=== PATIENT | female | born 1940 | race Caucasian/White ===

== ENCOUNTER 2019-05-03 12:22 | Inpatient (IN) | payer MEDICARE, OTHER ==
[~2019-05-03] VITALS: Ht 152.4 cm; Wt 66.9 kg
[~2019-05-03 12:22] MED LIST: FOLIC ACID 1 MG1 MG PO; HYDROCODONE-AP1 EAC6 PO; LEVOTHYROXINE 0.1 MG PO; MAXZIDE-25 MG1 EACH PO; SIMVASTATIN20 MG PO; TENORMIN50 MG PO; VITAMIN B-12500 MCG PO
[2019-05-03 12:25] VITALS: BP 129/56
[2019-05-03 13:34] LABS: NUCLEATED RBCS 0 /100WBC; WBC 4.1 thou/uL (4.0-11.0)
[2019-05-03 13:41] LABS: HEMATOCRIT 22.8 % (37.0-47.0); HEMOGLOBIN 7.9 gm/dL (12.0-15.0); MCH 35.8 pg (26.0-34.0); MCHC 34.7 g/dL (28.0-37.0); MCV 103.1 fL (80.0-100.0); MPV 7.6 fl. (7.2-11.1); PLATELET COUNT* 163 thou/uL (150-400); RBC 2.21 mil/uL (4.20-5.00); RDW-CV 20.6 % (10.5-14.5)
[2019-05-03 13:46] LABS: APTT 24.7 Seconds (25.0-31.3); INR 1.1; PROTIME 11.4 Seconds (9.20-11.50)
[2019-05-03 13:58] LABS: CK-MB MASS 1.6 ng/mL (<0.5-3.6); CREATININE 0.7 mg/dL (0.6-1.3); POTASSIUM 3.2 mmol/L (3.5-5.1); TOTAL BILIRUBIN 0.6 mg/dL (<0.1-1.0); TOTAL PROTEIN 5.7 g/dL (6.4-8.2)
[2019-05-03 14:04] LABS: ALBUMIN 3.1 g/dL (3.4-5.0); CALCIUM 9.4 mg/dL (8.5-10.1)
[2019-05-03 14:19] LABS: ABSOLUTE LYMPHOCYTES 0.3 thou/uL (0.8-5.3); ABSOLUTE NEUTROPHILS 3.8 thou/uL (1.6-8.1); METAMYELOCYTES 2 %; MYELOCYTES 1 %
[2019-05-03 14:20] LABS: OVALOCYTES 1+; TEARDROPS 1+
[2019-05-03 14:21] LABS: PLATELET ESTIMATE ADEQUATE; SCHISTOCYTES 1+
[2019-05-03] MEDS ORDERED: CALCIUM CARBON500 MG PO (14:25)
[2019-05-03] MEDS ORDERED: COLACE100 MG PO (14:25)
[2019-05-03] MEDS ORDERED: TORSEMIDE20 MG PO (14:25)
[2019-05-03] MEDS ORDERED: POTASSIUM20 PO (15:03)
[2019-05-03] MEDS ORDERED: MIRALAX119 GM PO (15:03)
[2019-05-03] MEDS ORDERED: ONDANSETRON ODT8 MG PO (15:03)
[2019-05-03] MEDS ORDERED: COMPAZINE10 MG PO (15:04)
[2019-05-03] MEDS ORDERED: DECADRON4 MG PO (15:05)
--- NOTE | 2019-05-03 16:12 | EKG ---
[place] [address] ELECTROCARDIOGRAM REPORT Name: SHIRLEYHÉCTOR Room: [place] [address] ADM IN .R.#: [id number] Admission: 05/03/19 Attend Phys: Adonis Galloway MD Discharge: Date of : 42 Report #: [id number] THIS REPORT FOR: //name// [facility] ED Test Date: 2019-05-03 Test Time: 12:59:53 Pat Name: ÉHCTOR WATSON Department: Room: [facility] Gender: F Hooker Operator: : 1940 Requested By: Valeriy Pelaez Order Number: [id number] MD: Gaudencio Lopez Measurements Intervals [place] Rate: 64 P: IA: QRS: -1 QRSD: 113 T: 41 QT: 411 QTc: 424 Interpretive Statements sinus rhythm poor r wave progression Borderline intraventricular conduction delay Low voltage, precordial leads Baseline wander in lead(s) III,aVL,aVF Compared to ECG 02/21/2017 12:12:19 rate has increased Electronically Signed On 05-03-2019 16:11:51 CDT by Gaudencio Lopez [email or web address] <ELECTRONICALLY SIGNED> By: Gaudencio Lopez MD, FAC 05/03/19 1611 [id number] [id number] Gaudencio Lopez MD, [facility] /EPI
[2019-05-03 16:30] VITALS: BP 122/49
[2019-05-03 16:31] VITALS: BP 123/53; BP 128/45; BP 129/56
--- NOTE | 2019-05-03 17:53 | NUR ---
PT ADMITTED TO TELE FLOOR . ON RA. VSS. ORTHOSTATIC BP TAKEN SEE CHART. NNO COMPLAINT. R CHEST PORT PATENT. NS INFUSING AT 80 PER HOUR. NEURO AND HEMO/ONC CONSULTED. DENIES PAIN, N/V. IV FLUID STARTED AT 80 PER HOUR. ADMISSION ASSESSMENT AND HX DONE. FALL PRECAUTION IN PLACE. CALL LIGHT AT REACH. WILL CONTINUE TO MONITOR
--- NOTE | 2019-05-03 19:12 | NUR ---
PT COUSIN CALLED ABOUT DECADRON AND NEUPOGEN THAT NEED TO BE RESTARTED. THIS WAS DISCUSSED WITH THE HEM/ONC DOCTOR. DOCTOR ORDER TO RESTART DECADRON STARTING TOMORROW SINCE PT HAS ALREADY RECEIVED A DOSE IN THE ER. DOCTOR MENTIONED HE WILL FOLLOW UP ABOUT THE NEUPOGEN TOMORROW.
[2019-05-03 20:00] VITALS: BP 112/45
[2019-05-04] VITALS: BP 109/47
[2019-05-04 04:00] VITALS: BP 106/49
[2019-05-04 05:22] LABS: ABSOLUTE LYMPHOCYTES 0.3 thou/uL (0.8-5.3); ABSOLUTE MONOCYTES 0.1 thou/uL (0.0-1.2); ABSOLUTE NEUTROPHILS 4.1 thou/uL (1.6-8.1); BASOPHILS 0.2 %; HEMOGLOBIN 8.3 gm/dL (12.0-15.0); LYMPHOCYTES 6.5 %; MCH 36.2 pg (26.0-34.0); MCHC 34.7 g/dL (28.0-37.0); MCV 104.4 fL (80.0-100.0); MONOCYTES 1.5 %; MPV 7.7 fl. (7.2-11.1); NUCLEATED RBCS 0 /100WBC; PLATELET COUNT* 168 thou/uL (150-400); POLYS 91.8 %; RDW-CV 20.3 % (10.5-14.5); WBC 4.5 thou/uL (4.0-11.0)
--- NOTE | 2019-05-04 05:35 | NUR ---
ASSUMED CARE OF PT AFTER REPORT AT 1930. PT A&OX4. VSS. PHYSICAL ASSESSMENT COMPLETED AND CHARTED. PT ON RA. PT TRACING SR/SB ON TELE. PT UPSTANDBY TO RESTROOM. PT WITH EPISODES OF INCONTINENT BLADDER. PT DENIES ANY PAIN OR DISCOMFORT. PT ABLE TO SLEEP WELL ON BED. CALL LIGHT WITHIN REACH.
[2019-05-04 05:37] LABS: CALCIUM 8.2 mg/dL (8.5-10.1); CREATININE 0.6 mg/dL (0.6-1.3)
[2019-05-04 05:42] LABS: POTASSIUM 2.9 mmol/L (3.5-5.1)
[2019-05-04 07:50] VITALS: BP 104/42
--- NOTE | 2019-05-04 10:33 | NUR ---
Pt having testing completed in room, CM to f/u later
--- NOTE | 2019-05-04 10:35 | NUR ---
ASSUMED CARE OF PT AT 0730. PT RESTING IN BED WAITING FOR BREAKFAST. PT A&0X4, FORGETFUL AT TIMES. TRACING SB ON THE MICROBIOLOGY COORDINATOR. ON RA SAT 99%. PT DENIES ANY PAIN OR SHORTNESS OF BREATH AT THIS TIME. PT INCONT OF URINE. IVF. PT UP WITH SBA TO BATHROOM. PT GOAL FOR TODAY IS COMPLETE MRI/MRA, REPLACE POTASSIUM PER ELECTROLYTE PROTOCOL, OBTAIN URINALYSIS AND REMAIN FREE FROM SYNCOPAL EPISODES. AM ASSESSMENT CHARTED. MEDICATIONS PER SEP. PT REPOSITIONS SELF WITH REMINDERS. HOURLY ROUNDING OBSERVED. BED IN LOW POSITION. BED ALARM IN PLACE. FALL PRECAUTIONS IN PLACE. CALL LIGHT WITHIN REACH. WILL CONTINUE PLAN OF CARE.
[2019-05-04 11:37] LABS: URINE BILIRUBIN NEGATIVE (Negative); URINE BLOOD NEGATIVE (Negative); URINE CLARITY CLEAR; URINE COLOR STRAW; URINE GLUCOSE-RANDOM NEGATIVE (Negative); URINE KETONES NEGATIVE (Negative); URINE LEUKOCYTES-REFLEX NEGATIVE (Negative); URINE NITRITE-REFLEX NEGATIVE (Negative); URINE PROTEIN NEGATIVE (Negative); URINE UROBILINOGEN 0.2 E.U./dl (0.2-1.0)
[2019-05-04 12:00] VITALS: BP 109/47
[2019-05-04] MEDS ORDERED: LEVO-T100 MCG PO (14:00)
[2019-05-04 15:42] VITALS: BP 109/47
--- NOTE | 2019-05-04 15:43 | NUR ---
Pt is A&O, some confusion (?). Pt resides at home alone, supportive cousin that is involved in POC. Pt has a walker and wc that she can use for mobility. Pt states that she thinks that she will dc to her cousin's home for a while. DC orders written, pending neuro. Pt declined HH.
[2019-05-04 16:00] VITALS: BP 122/53
--- NOTE | 2019-05-04 19:08 | NUR ---
PT HAD MRI AND MRA AND EEG TODAY. REFER TO RESULTS. OK FOR DISCHARGE PER NEURO. DISCHARGE ORDERS RECEIVED. DISCHARGE INSTRUCTIONS, CARE NOTES AND FOLLOW UP APPTS GIVEN TO PT. PT COMMUNICATES UNDERSTANDING OF DISCHARGE TEACHING. SLUDGE FILTRATION ATTENDANT REMOVED. SALMA CATH DEACCESSED WITH HEPARIN WITH NO DIFFICULTIES. PT DISCHARGED WITH ALL BELONGINGS AND PAPERWORK VIA WHEELCHAIR WITH NURSING STAFF TO FAMILY OWN PERSONAL VEHICLE.
--- NOTE | 2019-05-05 08:36 | CON ---
[address] [address] CONSULTATION Name: HÉCTOR WATSON Room: [address] IN M.R.#: [id number] Admission: 05/03/19 Attend Phys: Adonis Galloway MD Discharge: 05/04/19 Date of : 42 Report #: [id number] THIS REPORT FOR: //name// CC: Adonis Black [facility] DATE OF SERVICE: 05/03/2019 PRIMARY GYNECOLOGIC-ONCOLOGIC DOCTOR: Ernst Key DO SUBJECTIVE: A 78-year-old female, who has been receiving palliative chemotherapy with carbo, Taxol for recurrent uterine cancer. She received cycle #4 on 10/31/2018. The patient was admitted because of a presyncope and fall at home. She continues to live independently at the [facility]. She does not remember exactly any falls or seizure-like activity, no further information or details has been found in her records. Otherwise, the patient was initiated on hydration. At this point, she denies any major symptoms. She had some fatigue. The patient denies any nausea, vomiting or diarrhea. However, she reported mild neuropathy at hands and the feet. REVIEW OF SYSTEMS: All systems reviewed. It was negative except the above. PAST MEDICAL HISTORY: Recurrent uterine cancer, on palliative chemotherapy with carbo, Taxol, dyslipidemia, and hypothyroidism. MEDICATIONS: Per admission list. ALLERGIES: Per records, TOMATO AND HONEY. MEDICATIONS: Per admission list. FAMILY HISTORY: Positive for coronary artery disease. SOCIAL HISTORY: No smoking, no alcohol abuse, no drug abuse. PHYSICAL EXAMINATION: VITAL SIGNS: Today, temperature 36.5, pulse 73, respirations is 14, blood pressure is 124/53, SpO2 was 100% on room air. GENERAL: The patient was sitting in chair, the patient was lying in bed. She was not in acute distress. LUNGS: Clear to auscultations bilaterally. No crackles or wheezing. HEART: Regular rate and rhythm. S1, S2 within normal limits. ABDOMEN: Soft, nontender, nondistended, bowel sounds positive. No guarding. No ascites. EXTREMITIES: +1 edema bilaterally. NEUROLOGICAL: [place] [address] CONSULTATION Name: HÉCTOR WATSON Peggy Room: [address]#: [id number] Admission: 05/03/19 Attend Phys: Adonis Galloway MD Discharge: 05/04/19 Date of : 42 Report #: [id number] LABORATORY DATA: Today, WBC of 4.1, hemoglobin 7.9, platelets 163. Chemistry: Sodium is 141, potassium of 3.2, BUN 16, creatinine 0.7. Magnesium is 1.8. IMAGING: A chest x-ray showed a right-sided port placement, chronic changes, no acute process. Knee x-ray showed degenerative changes. ASSESSMENT AND PLAN: A 78-year-old female diagnosed with the recurrent uterine cancer, currently on palliative chemotherapy with carbo, Taxol. The patient was supposed to have a G-CSF 24-hour post her treatment and she can receive that up to 72 [address] I discussed with Dr. Key over the phone and the patient will be discharged hopefully in the next 24 hours. She still can make it to the window of receiving G-CSF. Agreed with the current supportive care. <ELECTRONICALLY SIGNED> By: John Winkler MD 05/05/1935 20 26John Winkler MD /nt
--- NOTE | 2019-05-07 19:25 | EEG ---
[address] [address] EEG STUDY REPORT Name: SHIRLEYHÉCTOR Room: [address] IN M.R.#: [id number] Admission: 05/03/19 Attend Phys: Adonis Galloway MD Discharge: 05/04/19 Date of : 42 Report #: [id number] THIS REPORT FOR: //name// CC: Adonis Galloway [facility] DATE OF SERVICE: 05/04/2019 The patient had episodes of syncope. EEG is being done to evaluate the possibility of seizure. EEG was done by placing the electrode by standard 10-20 system of electrode placement. Both referential and sequential montages were used for recording. Background activity in this patient's EEG is about 9 Hz and 30 microvolt. The patient went to sleep that is associated with bilaterally symmetrical sleep spindle and vertex sharp waves. Photic stimulation is unremarkable. Throughout the record, no active epileptiform activity was noticed. IMPRESSION: This patient's EEG does not demonstrate any active epileptiform activity. It might be noted that EEG can be normal in a patient with a seizure disorder. Thank you very much for this referral. <ELECTRONICALLY SIGNED> By: Mauro Navarro MD 05/07/19 [id number] Navarro MD /nt
--- NOTE | 2019-05-07 19:25 | CON ---
[address] [address] CONSULTATION Name: HÉCTOR WATSON Room: [address] IN M.R.#: [id number] Admission: 05/03/19 Attend Phys: Adonis Galloway MD Discharge: 05/04/19 Date of : 42 Report #: [id number] THIS REPORT FOR: //name// CC: Adonis Black [facility] DATE OF SERVICE: 05/03/2019 HISTORY OF PRESENT ILLNESS: This is a 78-year-old female patient who was seen by me for a fall. This patient is a poor historian. Her memory does not look very good. Part of the history is taken from the records and part of the history is taken from the patient. This patient has a metastatic ovarian carcinoma. She indicated that she fell down and she was found by the neighbor. She does not remember anything about that. She does not know how long she was on the floor before she was found. She said she had similar presentation in the past. She does not remember when it happened, but the record indicates that she had some event in 2017. No tonic-clonic activity was associated with it. She does not believe that she had any trauma preceding it. REVIEW OF SYSTEMS: Indicate that this patient has multiple problems. She has a metastatic ovarian carcinoma. Her memory looks poor. She does not complain of any neck pain or neck tenderness. She is not complaining of any scalp tenderness. She is pretty significantly anemic. It is not clear how long she has been anemic. In 2017, it looks like she has a rhabdo and her CPK was very high that time, but presently her CPK is normal. A 14-point review of systems was carried out. She does not complain of any new eye, ENT, cardiac, respiratory, GI, , constitutional, dermatological, hematological, psychiatric, throat, allergic symptom associated with present symptomatology. PAST MEDICAL HISTORY: Positive for metastatic ovarian carcinoma. FAMILY HISTORY: Negative for any early age stroke. SOCIAL HISTORY: The best I can tell, she lives in independent living, but her memory is very poor. She denies the use of alcohol. PHYSICAL EXAMINATION: The patient's examination indicated she can tell me what month it is. She could not tell me the exact date. She could not recall the hospital. She could not recall the name of the president. Her speech looks intact. She looks pleasant and fund of knowledge is diminished. Cranial nerve examination 2-12 looks mostly unremarkable, but she moves all 4 extremities. She does appear weaker than the lower extremities. She indicates that recently she has started using a walker and that has made her very comfortable. Neuromuscular examination is symmetrical. Strength is diminished in generalized fashion. Position sense is present. Reflexes are difficult to elicit, but she is getting chemotherapy. Tone looks symmetrical. [id number] [address] CONSULTATION Name: HÉCTOR WATSON Room: [address] IN M.R.#: [id number] Admission: 05/03/19 Attend Phys: Adonis Galloway MD Discharge: 05/04/19 Date of : 42 Report #: [id number] unremarkable. I could not look at the patient's fundus. Cardiac examinations appear unremarkable. No respiratory difficulty or rhonchi was noticed. She has nicely palpable pulses in the lower extremities. She does appear to have some edema, but she is not aware of it. Her blood pressure is 123/53, respiration is 14, pulse is 73, temperature is 97.7. LABORATORY DATA: Indicated that she is markedly anemic. Her MCV is somewhat high. She did have a CT scan of the head and that appeared unremarkable. IMPRESSION: It is unlikely that the patient passing out or falling down was because of any neurological etiology, but because of the history I will get an MRI and an electroencephalogram done tomorrow. I will suggest concentrating on looking for a systemic cause for the patient's symptoms. I will check TSH and vitamin B12 because of a complaint of cognitive deficits and I will see what this workup shows and if any other recommendation we may have. Thank you very much for this referral. <ELECTRONICALLY SIGNED> By: Mauro Navarro MD 05/07/191924 58 18Parricardo Navarro MD /nt
== END 2019-05-04 19:08 | disposition home or self-care (01) | DRG 70 ==
LOC: M.ERS 12:22 → M.2W 15:17 → M.TBA-ER 15:17 → M.2W 16:42
PROVIDERS: Emergency Medicine; ADMIT Internal Medicine
DX: G93.41 Metabolic encephalopathy (principal); E43 Unspecified severe protein-calorie malnutrition; I10 Essential (primary) hypertension; E78.5 Hyperlipidemia, unspecified; E03.9 Hypothyroidism, unspecified; D64.9 Anemia, unspecified; E86.0 Dehydration; F03.90 Unspecified dementia, unspecified severity, without behavioral disturbance, psychotic disturbance, mood disturbance, and anxiety; Z85.43 Personal history of malignant neoplasm of ovary; Z92.21 Personal history of antineoplastic chemotherapy; Z68.28 Body mass index [BMI] 28.0-28.9, adult; Z79.899 Other long term (current) drug therapy; Z91.018 Allergy to other foods; Z85.42 Personal history of malignant neoplasm of other parts of uterus; Z82.49 Family history of ischemic heart disease and other diseases of the circulatory system